=== PATIENT | female | born 1985 | race Caucasian/White ===

== ENCOUNTER 2018-10-25 22:22 | Emergency (ER) | payer MEDICAID | END 2018-10-25 23:22 | disposition home or self-care (01) | LOC: FTE 22:22 | DX: R05 Cough (principal); R09.81 Nasal congestion; R07.0 Pain in throat | CPT/HCPCS: 99283; Z7502 ==

== ENCOUNTER 2019-03-25 16:16 | Emergency (ER) | payer MEDICAID ==
[2019-03-25] MEDS: IBUPROFEN 800 MG TAB PO (17:12)
== END 2019-03-25 17:43 | disposition home or self-care (01) ==
LOC: FTE 16:16
DX: M65.9 Synovitis and tenosynovitis, unspecified (principal)
CPT/HCPCS: 29130; 73140; 99283-25